=== PATIENT | male | born 1980 | race American Indian/Alaskan Native ===

== ENCOUNTER 2016-09-28 12:18 | Emergency (ER) | payer MEDICAID ==
[2016-09-28 12:32] VITALS: RESP 18; TEMP 98.2; BMI 25.8
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
--- NOTE | 2016-09-28 13:32 | RAD ---
PROCEDURE: Left Knee Radiographs. HISTORY: Knee pain, history of surgery COMPARISON: No prior. FINDINGS: BONES: Intramedullary chi and screw fixation of the femur, partially imaged. The distal transverse metallic screw appears discontinuous/fractured. No acute displaced fracture of the visualized osseous structures. JOINTS: No dislocation. JOINT EFFUSION: No significant joint effusion. OTHER FINDINGS: None. IMPRESSION: The distal transverse metallic screw appears discontinuous/fractured. No acute osseous fracture, dislocation, or significant joint effusion identified.
[2016-09-28 14:09] VITALS: BP 124/72; PULSE 72; O2SAT 98
== END 2016-09-28 14:10 | disposition home or self-care (01) ==
LOC: SUPCPDRO 12:18 → C.ER 12:18
DX: M25.562 Pain in left knee (principal); Z98.890 Other specified postprocedural states

== ENCOUNTER 2016-10-14 19:17 | Emergency (ER) | payer MEDICAID ==
[2016-10-14 19:18] VITALS: BMI 25.8
[2016-10-14 19:50] VITALS: BP 140/97; PULSE 81; RESP 14; TEMP 98.7; O2SAT 100
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
== END 2016-10-14 20:50 | disposition home or self-care (01) ==
LOC: C.ER 19:17
DX: M25.562 Pain in left knee (principal)
CPT/HCPCS: 96372; 99283; J1885

== ENCOUNTER 2016-12-05 18:20 | Emergency (ER) | payer MEDICAID, OTHER ==
[2016-12-05 18:22] VITALS: BMI 25.8
--- NOTE | 2016-12-05 19:04 | C.PDOC ---
History Of Present Illness Leo Guerra is a 36-year-old male with a past medical history of asthma and right inguinal hernia repair surgery, who presents to the ED complaining of a recurrent left inguinal hernia. Patient states the hernia has been out several times in the past 2-3 weeks, and today he was unable to push it back in place like before, which prompted the ED visit. Denies abdominal pain. PMD: Sai Wan Time Seen by Provider: 12/05/16 18:46 Chief Complaint (Nursing): Groin Pain History Per: Patient History/Exam Limitations: no limitations Onset/Duration Of Symptoms: Days (x 2-3 weeks), Worse Since (today) Current Symptoms Are (Timing): Still Present Pain Scale Rating Of: 6 Quality Of Discomfort: Dull, Other (Constant) Past Medical History Reviewed: Historical Data, Nursing Documentation, Vital Signs Vital Signs: Last Vital Signs Temp 98.7 F 12/05/16 18:25 Pulse 72 12/05/16 18:25 Resp 18 12/05/16 18:25 BP 135/80 12/05/16 18:25 Pulse Ox 98 12/05/16 19:35 - Medical History PMH: Asthma Other Surgeries: Right inguinal hernia repair w/ mesh Family History: States: Unknown Family Hx, Hypertension (mother and brother) - Social History Hx Alcohol Use: No Hx Substance Use: No - Immunization History Hx Tetanus Toxoid Vaccination: No Hx Influenza Vaccination: No Hx Pneumococcal Vaccination: No Review Of Systems Except As Marked, All Systems Reviewed And Found Negative. Gastrointestinal: Negative for: Abdominal Pain Genitourinary: Positive for: Other (Left inguinal hernia and groin tenderness) Physical Exam - Physical Exam Appears: Non-toxic, No Acute Distress Skin: Normal Color, Warm, Dry Head: Atraumatic, Normacephalic Eye(s): bilateral: Normal Inspection, PERRL, EOMI Nose: Normal Oral Mucosa: Moist Throat: Normal Neck: Normal, Supple Chest: Symmetrical Cardiovascular: Rhythm Regular, No Murmur Respiratory: Normal Breath Sounds, No Accessory Muscle Use Gastrointestinal/Abdominal: Normal Exam, Soft, No Tenderness Back: Normal Inspection, No Vertebral Tenderness Male Genital: Inguinal Tenderness, Other (large left inguinal hernia, nonreducible at this time) Extremity: Normal ROM Neurological/Psych: Oriented x3, Normal Speech, Normal Motor, Normal Sensation ED Course And Treatment O2 Sat by Pulse Oximetry: 98 (RA) Pulse Ox Interpretation: Normal Medical Decision Making Medical Decision Making: Impression: 36 year old with left inguinal hernia Time: 19:06 Initial Plan: --CMP --CBC --Urinalysis --Lactic acid --Sodium chloride 1000 ml at 1000 mls/hr IV --Paged General Surgery, Dr. Haile Costello for consult --Pending CT Abdomen/Pelvis w/ PO IV contrast Time: 19:30 --Patient's PMD, Dr. Wan returned call, and agrees with plan to admit to Surgery. Disposition Discussed With : Dragan Stanley Doctor Will See Patient In The: Hospital Counseled Patient/Family Regarding: Studies Performed, Diagnosis - Disposition Disposition: HOSPITALIZED Disposition Time: 19:37 Condition: GUARDED Forms: [facility] (Hebrew) - POA Present On Arrival: None - Clinical Impression Clinical Impression: Inguinal hernia of left side with obstruction and without gangrene - Scribe Statement The provider has reviewed the documentation as recorded by the Rubina Ho All medical record entries made by the Wallyibnicko were at my direction and personally dictated by me. I have reviewed the chart and agree that the record accurately reflects my personal performance of the history, physical exam, medical decision making, and the department course for this patient. I have also personally directed, reviewed, and agree with the discharge instructions and disposition. Decision To Admit - Pt Status Changed To: Hospital Disposition Of: Inpatient - Admit Certification Admit to Inpatient:: After my assessment, the patient will require hospitalization for at least two midnights. This is because of the severity of symptoms shown, intensity of services needed, and/or the medical risk in this patient being treated as an outpatient. - InPatient: Physician Admission Certification: I certify that this patient requires 2 or more midnights of care for the following reason:: entraped inguinal hernia - . Bed Request Type: Regular Patient Diagnosis: Inguinal hernia of left side with obstruction and without gangrene
[2016-12-05] MEDS ORDERED: Sodium Chloride 0.9% 1,000 ML IV ONE (19:05)
[2016-12-05] MEDS ORDERED: Bacitracin 500 Units/gm Oint Foilpak UD TOP ONE (19:46)
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
[2016-12-05] MEDS ORDERED: Bacitracin 500 Units/gm Oint Foilpak UD ONE (19:57)
[2016-12-05 20:01] VITALS: BP 117/70; PULSE 60; RESP 16; TEMP 98.9; O2SAT 100
== END 2016-12-05 20:05 | disposition home or self-care (01) ==
LOC: C.ER 18:20
DX: K40.91 Unilateral inguinal hernia, without obstruction or gangrene, recurrent (principal)

== ENCOUNTER 2017-01-04 15:14 | Emergency (ER) | payer OTHER ==
[2017-01-04 15:14] VITALS: BMI 25.8
[2017-01-04] MEDS ORDERED: Sodium Chloride 0.9% 500 ML IV ONE ×2 (15:37→16:02)
[2017-01-04] MEDS ORDERED: Alum-Mag Hydrox-Simethicone Susp (30 mL) PO STA (15:38)
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
[2017-01-04] MEDS ORDERED: Alum-Mag Hydrox-Simethicone Susp (30 mL) ONE (16:02)
--- NOTE | 2017-01-04 16:19 | RAD ---
PROCEDURE: Radiographs of the chest and abdomen (obstructive series) by HISTORY: pain COMPARISON: None available. TECHNIQUE: AP radiograph of the chest, with upright and supine radiographs of the abdomen. FINDINGS: CHEST: Cardiomediastinal silhouette appears within normal limits. No focal consolidation, significant pleural effusion, or definite pneumothorax identified.Please note that chest x-ray has limited sensitivity for the detection of pulmonary masses. ABDOMEN AND PELVIS: Nonobstructive bowel gas pattern. No definite free air. Moderate constipation. No acute osseous abnormality is detected. Postsurgical changes with intratrochanteric metallic chi and screw fixation of the left femur partially imaged. IMPRESSION: Moderate constipation.
[2017-01-04 16:25] LABS: EOS # 0.4 K/uL (0.0-0.7); MONO # 0.9 K/uL (0.0-0.8); NRBC % 0.1 % (0.0-2.0)
[2017-01-04 16:27] LABS: CHLORIDE 101 mmol/L (98-107); POTASSIUM 4.1 mmol/L (3.6-5.2); SODIUM 141 mmol/L (132-148)
[2017-01-04 16:29] LABS: RBC URINE < 1 /hpf (0-3); URINE BILIRUBIN NEGATIVE (NEGATIVE); URINE BLOOD NEGATIVE (NEGATIVE); URINE COLOR Yellow (YELLOW); URINE GLUCOSE (UA) NORMAL (Normal); URINE KETONE NEGATIVE (NEGATIVE); URINE LEUKOCYTE ESTERASE NEG Leu/uL (Negative); URINE PROTEIN NEGATIVE (NEGATIVE); URINE UROBILINOGEN NORMAL mg/dL (0.2-1.0); WBC URINE 3 /hpf (0-5)
[2017-01-04 16:30] LABS: ALB/GLOB RATIO 1.2 (1.0-2.1); ALKALINE PHOSPHATASE 80 U/L (38-126); ALT/SGPT 17 U/L (21-72); AST/SGOT 15 U/L (17-59); BILIRUBIN,TOTAL 0.6 mg/dL (0.2-1.3); BLOOD UREA NITROGEN 9 mg/dL (9-20); CALCIUM 9.2 mg/dl (8.6-10.4); CARBON DIOXIDE 29 mmol/L (22-30); GFR AFRICAN-AMERICAN > 60; GLUCOSE,RANDOM 76 mg/dL (75-110); TOTAL PROTEIN 7.3 g/dL (6.3-8.3)
[2017-01-04 16:31] LABS: ALCOHOL SERUM < 10 mg/dl (0-10)
[2017-01-04 16:40] LABS: BASO % 0.3 % (0.0-2.0); EOS % 5.9 % (0.0-4.0); HEMATOCRIT 43.8 % (35.0-51.0); LYMPH # 1.5 K/uL (1.0-4.3); LYMPH % 23.6 % (20.0-40.0); MEAN CELL VOLUME 80.2 fL (80.0-94.0); MEAN CORPUSCULAR HEMOGLOBIN 26.2 pg (27.0-31.0); MEAN CORPUSCULAR HGB CONC 32.7 g/dL (33.0-37.0); MEAN PLATELET VOLUME 9.4 fL (7.2-11.7); MONO % 14.7 % (0.0-10.0); RED CELL DISTRIBUTION WIDTH 14.1 % (11.5-14.5); WHITE BLOOD COUNT 6.5 K/uL (4.8-10.8)
[2017-01-04] MEDS ORDERED: Iohexol 240 (50 ml) PO STA (16:53)
[2017-01-04] MEDS ORDERED: Iohexol 240 (50 ml) ONE (17:18)
[2017-01-04] MEDS ORDERED: Iodixanol 320 MG/ML 100 ML BOTTLE IV ONE (17:56)
[2017-01-04 18:19] VITALS: BP 114/72; PULSE 65; RESP 18; TEMP 98
[2017-01-04 18:21] VITALS: O2SAT 100
== END 2017-01-04 18:19 | disposition home or self-care (01) ==
LOC: C.ER 15:14
DX: K59.00 Constipation, unspecified (principal); R10.84 Generalized abdominal pain
CPT/HCPCS: 74022; 80053; 80320; 81001; 83690; 85025; 96374; 96375; 99284; J1885; J7040

== ENCOUNTER 2017-04-19 16:36 | Emergency (ER) | payer OTHER ==
[2017-04-19 16:36] VITALS: BMI 25.8
[2017-04-19] MEDS ORDERED: Albuterol 0.083% Inhal Sol (2.5 mg/3 mL) UD IH STA (17:30)
--- NOTE | 2017-04-19 17:41 | C.PDOC ---
History Of Present Illness 36 y/o male came to ER stating "I have a cold." C/o productive cough, congestion , and a scratchy throats for the last few days. Notes his asthma has been acting up and he ran out of his medication. Has not taken any fever, chest pain , headache, neck pain, difficulty breathing or swallowing. Pt notes he quit smoking 6 days ago and started vaping. Time Seen by Provider: 04/19/17 17:20 Chief Complaint (Nursing): Cough, Cold, Congestion History Per: Patient History/Exam Limitations: no limitations Onset/Duration Of Symptoms: Days Current Symptoms Are (Timing): Still Present Location Of Pain: Throat Associated Symptoms: Sore Throat, Cough, Sputum, Nasal Congestion. denies: Fever, Chills Ear Symptoms: Bilateral: None Additional History Per: Patient Past Medical History Vital Signs: Last Vital Signs Temp 99.7 F H 04/19/17 18:39 Pulse 94 H 04/19/17 18:39 Resp 20 04/19/17 18:39 BP 141/80 04/19/17 18:39 Pulse Ox 99 04/19/17 18:39 - Medical History PMH: Asthma Family History: States: Unknown Family Hx, Hypertension (mother and brother) - Social History Hx Alcohol Use: No Hx Substance Use: No - Immunization History Hx Tetanus Toxoid Vaccination: No Hx Influenza Vaccination: No Hx Pneumococcal Vaccination: No Review Of Systems Except As Marked, All Systems Reviewed And Found Negative. ENT: Positive for: Nose Congestion, Throat Pain Respiratory: Positive for: Cough, Other (+ chest tightness) Physical Exam - Physical Exam Appears: Well, Non-toxic, No Acute Distress Skin: Normal Color, Warm, Dry Head: Atraumatic, Normacephalic Eye(s): bilateral: Normal Inspection, EOMI Ear(s): Bilateral: Normal Nose: Normal, No Discharge Oral Mucosa: Moist Tongue: Normal Appearing Throat: Normal, No Erythema, No Exudate, No Drooling Neck: Normal, Normal ROM, Supple Lymphatic: Normal Exam Chest: Symmetrical Cardiovascular: Rhythm Regular Respiratory: Wheezing (mild) Gastrointestinal/Abdominal: Soft Extremity: Normal ROM Neurological/Psych: Oriented x3, Normal Speech ED Course And Treatment O2 Sat by Pulse Oximetry: 96 Progress Note: Plan: - Albuterol. - Prednisone. - Neck XR Soft Tissue. Pt on the phone throughout entire stay in ER without any difficulty breathing. On re-evaluation, CTA, afebrile.TOlerating PO. Disposition - Disposition Disposition: HOME/ ROUTINE Disposition Time: 18:16 Condition: STABLE Additional Instructions: Follow up with your primary medical doctor or clinic in 2-5 days for further evaluation. Take medications as prescribed. Return to the emergency department at any time if symptoms persist or worsen. Prescriptions: Albuterol HFA [Ventolin HFA 90 mcg/actuation (8 g)] 2 puff IH [id number] #1 puff Albuterol 0.083% [Albuterol 0.083% Inhal Gem (2.5 mg/3 ml) UD] 2.5 mg IH Q6 PRN #20 neb PRN Reason: Shortness Of Breath Guaifen/Dextromethorphan/PE [Mucinex Fast-Max Congest-Cough] 1 each PO Q6 #20 tablet predniSONE [Prednisone] 40 mg PO DAILY #8 tab Instructions: Upper Respiratory Infection (ED) Forms: [facility] (Latvian) - Clinical Impression Clinical Impression: Upper respiratory infection - Scribe Statement The provider has reviewed the documentation as recorded by the Scribe (Sravani Harp)
[2017-04-19] MEDS ORDERED: Albuterol 0.083% Inhal Sol (2.5 mg/3 mL) UD ONE (17:43)
[2017-04-19 18:40] VITALS: BP 141/80; PULSE 94; RESP 20; TEMP 99.7
[2017-04-19 18:56] VITALS: O2SAT 96
--- NOTE | 2017-04-20 08:43 | RAD ---
PROCEDURE: Radiographs of the neck (soft tissue). HISTORY: pain COMPARISON: None. TECHNIQUE: Frontal and Lateral Radiographs of the neck, optimized for soft tissue visualization. FINDINGS: SOFT TISSUES: Unremarkable. No radiopaque foreign body seen. No prevertebral soft tissue swelling. CERVICAL SPINE: Degenerative disc disease C4-5. No evidence of fracture. Normal alignment. OTHER FINDINGS: None. IMPRESSION: Degenerative disc disease C4-5. Otherwise unremarkable examination.
== END 2017-04-19 18:39 | disposition home or self-care (01) ==
LOC: C.ER 16:36
DX: J06.9 Acute upper respiratory infection, unspecified (principal)

== ENCOUNTER 2018-08-03 11:19 | Emergency (ER) | payer MEDICAID, OTHER ==
[2018-08-03 11:36] VITALS: BMI 26.1
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
[2018-08-03] MEDS ORDERED: Sodium Chloride 0.9% 1,000 ML IV ONE (11:59)
[2018-08-03 12:09] LABS: BASO % 0.4 % (0.0-2.0); EOS # 0.2 K/uL (0.0-0.7); EOS % 3.2 % (0.0-4.0); HEMOGLOBIN 14.6 g/dL (12.0-18.0); LYMPH # 1.9 K/uL (1.0-4.3); LYMPH % 35.8 % (20.0-40.0); MEAN CORPUSCULAR HEMOGLOBIN 29.3 pg (27.0-31.0); MEAN CORPUSCULAR HGB CONC 33.4 g/dL (33.0-37.0); MEAN PLATELET VOLUME 8.8 fL (7.2-11.7); MONO # 0.6 K/uL (0.0-0.8); MONO % 10.7 % (0.0-10.0); NEUT # 2.6 K/uL (1.8-7.0); NEUT % 49.9 % (50.0-75.0); NRBC % 0.1 % (0.0-2.0); RBC 4.99 Mil/uL (4.40-5.90); RED CELL DISTRIBUTION WIDTH 13.4 % (11.5-14.5); WHITE BLOOD COUNT 5.3 K/uL (4.8-10.8)
[2018-08-03 12:13] LABS: MEAN CELL VOLUME 87.7 fL (80.0-94.0)
[2018-08-03 12:24] LABS: ALB/GLOB RATIO 1.5 (1.0-2.1); ALT/SGPT 8 U/L (21-72); AST/SGOT 19 U/L (17-59); BLOOD UREA NITROGEN 10 mg/dL (9-20); GFR NON-AFRICAN AMERICAN > 60
[2018-08-03 13:06] VITALS: BP 129/86; PULSE 53; RESP 18; TEMP 98
[2018-08-03 13:50] VITALS: O2SAT 100
[2018-08-04] MEDS ORDERED: Potassium Chloride 20 mEq ER Tab PO ONE (13:42)
== END 2018-08-03 14:00 | disposition home or self-care (01) ==
LOC: C.ER 11:19
DX: R42 Dizziness and giddiness (principal)
CPT/HCPCS: 80053; 82948; 84484; 85025; 96360; 99285; J7030

== ENCOUNTER 2018-08-28 01:12 | Emergency (ER) | payer OTHER, MEDICAID ==
[2018-08-28 01:12] VITALS: BMI 25.8
[2018-08-28 01:23] VITALS: RESP 18; O2SAT 98
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
[2018-08-28 02:17] VITALS: BP 110/69; PULSE 65; TEMP 97.8
--- NOTE | 2018-08-28 10:00 | RAD ---
PROCEDURE: Left Hand Radiographs. HISTORY: hand injury COMPARISON: None. TECHNIQUE: 3 views obtained. FINDINGS: BONES: Normal. No fracture. JOINTS: Normal. No osteoarthritic changes. SOFT TISSUES: Normal. OTHER FINDINGS: None. IMPRESSION: Normal left hand radiographs.
== END 2018-08-28 02:17 | disposition home or self-care (01) ==
LOC: C.ER 01:12
DX: M79.642 Pain in left hand (principal)

== ENCOUNTER 2018-09-06 19:59 | Emergency (ER) | payer MEDICAID, OTHER | END 2018-09-06 22:39 | disposition home or self-care (01) | LOC: C.ER 19:59 ==

== ENCOUNTER 2018-09-12 01:29 | Emergency (ER) | payer MEDICAID ==
[2018-09-12 01:29] VITALS: BMI 25.8
[2018-09-12 01:49] VITALS: RESP 18
[2018-09-12] MEDS ORDERED: Sodium Chloride 0.9% 1,000 ML IV ONE (02:17)
[2018-09-12] MEDS ORDERED: Sodium Chloride 0.9% 1,000 ML ONE (02:24)
[2018-09-12 02:54] LABS: BASO % 0.4 % (0.0-2.0); EOS # 0.2 K/uL (0.0-0.7); HEMOGLOBIN 13.8 g/dL (12.0-18.0); LYMPH # 2.5 K/uL (1.0-4.3); LYMPH % 43.1 % (20.0-40.0); MEAN CELL VOLUME 87.2 fL (80.0-94.0); MEAN CORPUSCULAR HEMOGLOBIN 29.2 pg (27.0-31.0); MEAN CORPUSCULAR HGB CONC 33.6 g/dL (33.0-37.0); MEAN PLATELET VOLUME 9.3 fL (7.2-11.7); MONO # 0.5 K/uL (0.0-0.8); MONO % 9.2 % (0.0-10.0); NEUT # 2.6 K/uL (1.8-7.0); NEUT % 44.3 % (50.0-75.0); NRBC % 0.3 % (0.0-2.0); RBC 4.72 Mil/uL (4.40-5.90); RED CELL DISTRIBUTION WIDTH 12.8 % (11.5-14.5); WHITE BLOOD COUNT 5.8 K/uL (4.8-10.8)
[2018-09-12 02:59] LABS: ALB/GLOB RATIO 1.4 (1.0-2.1); ALT/SGPT 21 U/L (21-72); AST/SGOT 19 U/L (17-59); BLOOD UREA NITROGEN 17 mg/dL (9-20); CALCIUM 8.8 mg/dl (8.6-10.4); GFR NON-AFRICAN AMERICAN > 60
--- NOTE | 2018-09-12 03:44 | C.PDOC ---
History Of Present Illness 38 year old male presents to the ED for evaluation. Patient states " I feel dehydrated". Patient reports he was at a cookout today and was around shrimp. Patient has a shrimp allergy and altough he did not eat it, he is requesting fl uids to flush out the possible shrimp in his system. Patient also c/o intermittent dizziness. Patient denies fever, chills, facial swelling, tongue swelling, lip swelling, SOB, wheezing, rash, nausea, vomit. Time Seen by Provider: 09/12/18 01:52 Chief Complaint (Nursing): Medical Clearance History Per: Patient History/Exam Limitations: no limitations Onset/Duration Of Symptoms: Hrs Recent travel outside of the [place]: No Additional History Per: Patient Past Medical History Reviewed: Historical Data, Nursing Documentation, Vital Signs Vital Signs: Last Vital Signs Temp 98.2 F 09/12/18 01:41 Pulse 72 09/12/18 01:41 Resp 18 09/12/18 01:41 BP 134/78 09/12/18 01:41 Pulse Ox 97 09/12/18 01:41 Primary Care Provider: Non [facility] Provider, - Medical History PMH: Asthma Surgical History: No Surg Hx Family History: States: Unknown Family Hx, Hypertension (mother and brother) - Social History Hx Alcohol Use: No Hx Substance Use: No - Immunization History Hx Tetanus Toxoid Vaccination: Yes (6 mos. ago) Hx Influenza Vaccination: No Hx Pneumococcal Vaccination: No Review Of Systems Constitutional: Negative for: Fever, Chills ENT: Negative for: Mouth Swelling, Throat Swelling Respiratory: Negative for: Cough, Shortness of Breath, Wheezing Gastrointestinal: Negative for: Vomiting, Abdominal Pain Skin: Negative for: Rash Neurological: Positive for: Dizziness. Negative for: Headache Physical Exam - Physical Exam Appears: Non-toxic, No Acute Distress Skin: Normal Color, Warm, Dry, No Rash Head: Atraumatic, Normacephalic Eye(s): bilateral: Normal Inspection Oral Mucosa: Moist Tongue: No Swelling Lips: No Swelling Throat: Normal, No Erythema, No Exudate Neck: Normal ROM, Supple Chest: Symmetrical Cardiovascular: Rhythm Regular Respiratory: Normal Breath Sounds, No Rales, No Rhonchi, No Wheezing Extremity: Normal ROM, No Tenderness, No Swelling Neurological/Psych: Oriented x3, Normal Speech, Normal Cognition Gait: Steady ED Course And Treatment - Laboratory Results Result Diagrams: 09/12/18 02:43 09/12/18 02:43 Lab Results: Total Bilirubin 0.5 mg/dL (0.2-1.3) 09/12/18 02:43 AST 19 U/L (17-59) 09/12/18 02:43 ALT 21 U/L (21-72) D 09/12/18 02:43 Alkaline Phosphatase 75 U/L (38-126) 09/12/18 02:43 Total Protein 6.9 g/dL (6.3-8.3) 09/12/18 02:43 Albumin 4.0 g/dL (3.5-5.0) 09/12/18 02:43 Globulin 2.9 gm/dL (2.2-3.9) 09/12/18 02:43 Albumin/Globulin Ratio 1.4 (1.0-2.1) 09/12/18 02:43 O2 Sat by Pulse Oximetry: 97 (ON RA) Pulse Ox Interpretation: Normal Progress Note: Plan: - Labs. - IV fluids. Patient was reassured after fluids were finished that no signs of allergic reaction were present at this time. Patient in NARD, breathing without difficulty, no facial swelling noted. Patient advised to take antihistamines at home and to follow up with PMD. Disposition Counseled Patient/Family Regarding: Diagnosis, Need For Followup, Rx Given - Disposition Disposition: HOME/ ROUTINE Disposition Time: 03:40 Condition: STABLE Additional Instructions: Please follow up in clinic Stay hydrated Clean wound with water and gentle soap Return to ER if worse Instructions: Dizziness, Nonvertigo, (DC) Forms: [facility] (Brazilian) - Clinical Impression Clinical Impression: Medical assessment, Dizziness, Ankle abrasion without infection - PA / ACTIONSCRIPT DEVELOPER / Resident Statement MD/DO has reviewed & agrees with the documentation as recorded. - Scribe Statement The provider has reviewed the documentation as recorded by the Scribe Claudio Britt All medical record entries made by the Wallyibnicko were at my direction and personally dictated by me. I have reviewed the chart and agree that the record accurately reflects my personal performance of the history, physical exam, medical decision making, and the department course for this patient. I have also personally directed, reviewed, and agree with the discharge instructions and disposition.
[2018-09-12 03:50] VITALS: BP 121/66; PULSE 65; TEMP 98.3
[2018-09-12 03:52] VITALS: O2SAT 97
== END 2018-09-12 03:52 | disposition home or self-care (01) ==
LOC: C.ER 01:29
DX: R42 Dizziness and giddiness (principal); S90.519A Abrasion, unspecified ankle, initial encounter; X58.XXXA Exposure to other specified factors, initial encounter
CPT/HCPCS: 80053; 82550; 83735; 85025; 96360; 99283; J7030